=== PATIENT | male | born 2000 ===

== ENCOUNTER 2019-11-27 22:21 | Emergency (ER) | payer OTHER, SELFPAY ==
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
[2019-11-27 22:25] VITALS: BP 118/64; PULSE 80; RESP 19; TEMP 36.7; O2SAT 98; BMI 25.0
--- NOTE | 2019-11-27 22:33 | PC.NURSE ---
patient placed in rigid c-collar upon arrival
[2019-11-27 22:54] VITALS: BP 136/68; PULSE 62; RESP 17; O2SAT 99
[2019-11-27 23:08] VITALS: BP 137/75; PULSE 82; RESP 16; O2SAT 99
== END 2019-11-27 23:09 | disposition home or self-care (01) ==
LOC: ER 11-28 07:06
PROVIDERS: Emergency Provider Emergency Medicine
DX: S13.4XXA Sprain of ligaments of cervical spine, initial encounter (principal); S09.90XA Unspecified injury of head, initial encounter; V80.52XA Occupant of animal-drawn vehicle injured in collision with other specified motor vehicle, initial encounter
CPT/HCPCS: 12345; 70450; 71045; 72125; 72128; 99281; 99283

== ENCOUNTER 2020-11-23 14:40 | Inpatient (IN) | payer SELFPAY ==
[2020-11-23] VITALS (20 sets, daily range): BP systolic 86–118; BP diastolic 34–61; PULSE 86–140; RESP 15–36; TEMP 39.1–41.1; O2SAT 93–98; BMI 25.8
--- NOTE | 2020-11-23 15:05 | XRR_ITS ---
PROCEDURE INFORMATION: Exam: XR Chest Exam date and time: 11/23/2020 3:05 PM Age: 20 years old Clinical indication: Fever; Patient HX: He complains of headache, denies neck pain and stiffness, denies chest pain and shortness of breath. He admits abdominal cramping, nausea, vomiting. ; Additional info: Reduced breath sounds. Fever 105 TECHNIQUE: Imaging protocol: XR of the chest. Views: 1 view. COMPARISON: CR XR chest 1V portable [id number] 11/27/2019 10:40 PM FINDINGS: Lungs: Low lung volumes. Mild diffusely increased interstitial markings, particularly in the left infrahilar region. No focal consolidation. Pleural spaces: Unremarkable. No pleural effusion. No pneumothorax. Heart/Mediastinum: Cardiac silhouette upper normal factors. Bones/joints: Unremarkable. XR/XR chest 1V portable [id number] IMPRESSION: Mild diffusely increased interstitial markings which may be exaggerated by low lung volumes. This appears most pronounced in the left infrahilar region and acute infectious/inflammatory airways process is not excluded. No focal consolidation.
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
--- NOTE | 2020-11-23 15:09 | ECG_ITS ---
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 Measurements Intervals [place] Rate: 114 P: 57 OK: 171 QRS: 15 QRSD: 111 T: 60 QT: 322 QTc: 445 Interpretive Statements SINUS TACHYCARDIA INCOMPLETE RIGHT BUNDLE BRANCH BLOCK [90+ ms QRS DURATION, TERMINAL R IN V1/V2, 40+ ms S IN I/aVL/V4/V5/V6] NONSPECIFIC T-WAVE ABNORMALITY ABNORMAL RHYTHM ECG No previous ECG available for comparison Electronically Signed On 11-23-2020 21:32:29 CDT by Zafar Enrique M.D. [id number]
--- NOTE | 2020-11-23 15:29 | W.ED.FEVER ---
HPI - Fever General: Chief Complaint: Fever Stated Complaint: h/a high temp and aches Time Seen by Provider: 11/23/20 15:05 History of Present Illness: HPI Narrative: The patient is a 20-year-old [place] male who comes to the ER complaining of not feeling well for the past week. Presents to ER with temperature 106. He says he is taken no medications today but yesterday he took ibuprofen and aspirin. He complains of headache, denies neck pain and stiffness, denies chest pain and shortness of breath. He admits abdominal cramping, nausea, vomiting. He says he is pulled a few ticks off in the past few weeks as well. Discussed Covid with him in depth and need for testing and he adamantly refuses nasal swab. Discussed he could get sick and from this and he understands and accepts the consequences. MD elicited complaint: fever Relieving factors: nothing Associated symptoms: Reports abdominal pain, chills, headache(s), myalgias, nausea and vomiting; Deny flank pain, chest pain, confusion, cough, extremity pain, nasal congestion, short of breath, stiffness or sore throat Treatments prior to arrival fever: ibuprofen (yesterday) and aspirin (yesterday) Review of Systems General: Reports: 10 or more systems reviewed and unremarkable except in HPI and below Const: Reports: fever(s), chills and fatigue Eyes: Denies: change in vision, blurry vision or eye redness ENMT: Denies: nasal congestion Card: Denies: chest pain Resp: Denies: dyspnea, productive cough or non-productive cough GI: Reports: abdominal pain, nausea and vomiting : Denies: flank pain, urinary frequency or urinary urgency Musc: Denies: neck pain, back pain, extremity pain, joint pain, joint redness, limited range of motion or muscle weakness Skin/Breast: Denies: rash, pruritus, erythema, skin pain or skin tenderness Neuro: Reports: headache(s); Denies: confusion Psych: Denies: anxiety or depression Endo: Denies: polyuria All/Imm: Denies: urticaria, throat swelling or tongue swelling Physical Exam Narrative: EXAM NARRATIVE: febrile 106. warm to touch. Const: COMMON NORMALS: average body habitus, patient oriented x3 and alert GENERAL APPEARANCE: cooperative, well kempt, well developed, anxious and ill appearing ORIENTATION/CONSCIOUSNESS: Yes awake, Yes oriented to person, Yes oriented to place and Yes oriented to time HENMT: COMMON NORMALS: normocephalic, external ears normal and Normal external nose present HEAD & SCALP: normal to inspection and normocephalic NOSE: Normal external nose present EXTERNAL EAR: Yes external ears normal MOUTH: Normal oral and palatal mucosa present THROAT: posterior oropharynx normal Eye: COMMON NORMALS: Equal, round and reactive pupils present and EOMs intact bilaterally GENERAL EYE: appearance normal, both eyes and all related structures PUPIL: Yes Equal, round and reactive pupils present Neck/C-Spine: COMMON NORMALS: full ROM, no lymphadenopathy, no meningeal signs and no JVD GENERAL: Yes normal visual inspection OTHER: no neck pain or stiffness. Lymph: LYMPHATIC: no lymphadenopathy noted Chest: COMMONS NORMALS: normal inspection of the chest and normal palpation of entire chest wall Resp: COMMON NORMALS: normal respiratory effort, No retractions, No use of accessory muscles, clear to auscultation bilaterally and percussion normal EFFORT & INSPECTION: Yes able to speak in complete sentences AUSCULTATION: clear to auscultation bilaterally PERCUSSION: percussion normal Cardio: COMMON NORMALS: no JVD, regular rhythm, S1 normal heart sound present, S2 normal heart sound present and Peripheral pulses 2+ throughout RATE: tachycardic RHYTHM: regular rhythm HEART SOUNDS: S1 normal heart sound present and S2 normal heart sound present PERIPHERAL PULSES: Peripheral pulses 2+ throughout GI: COMMON NORMALS: Normal to inspection, nondistended, normoactive bowel sounds present, Soft to palpation, non-tender and no masses INSPECTION: Yes normal to inspection PALPATION: Yes Soft to palpation : COMMON NORMALS: Yes no CVA tenderness BLADDER/KIDNEY EXAM: Yes no CVA tenderness Back/Pelvis: COMMON NORMALS: no CVA tenderness, thoracic and lumbar spine normal to inspection, no thoracic nor lumbar tenderness and thoraco-lumbar ROM normal Extremity: COMMON NORMALS: normal to inspection, full ROM, capillary refill normal, no joint enlargement and no pedal edema GENERAL: Yes normal exam except as noted Neuro: COMMON NORMALS: patient oriented x3, CN's II-XII intact bilaterally, moves all extremities, no focal motor deficits, no sensory deficits noted and gait normal SENSORIUM/ORIENTATION: Yes alert, Yes oriented to person, Yes oriented to place and Yes oriented to time MENINGEAL SIGNS: Yes no meningeal signs Psych: COMMON NORMALS: mental status grossly normal, Normal thought process present, cooperative, normal affect and speech normal APPEARANCE: Yes well kempt ATTITUDE: Yes calm SPEECH: Yes normal speech THOUGHT PROCESS: Normal thought process present Skin: COMMON NORMALS: no rashes or lesions noted GENERAL SKIN EXAM: no rashes or lesions noted Course Vital Signs: Vital signs: Vital Signs Temperature 102.3 F H 11/23/20 17:20 Pulse Rate 97 11/23/20 19:39 Respiratory Rate 20 H 11/23/20 19:39 Blood Pressure 109/57 11/23/20 19:39 Pulse Oximetry 98 11/23/20 19:39 MDM - Fever MDM Narrative: Medical decision making narrative: The patient is a 20-year-old male [facility] unvaccinated gentleman who comes to the ER critically ill. Initially with heart rate sinus tach 140s and fever 106 degrees. He also complains of headache, weakness, belly pain, nausea and has been bitten by few ticks in the past few weeks. He has been feeling unwell for a week at home. He was started with sepsis protocol 2 L normal saline, vancomycin, Zosyn. Labs came back significantly abnormal as well white count 3.2 platelets 36, sodium 127, potassium 3, procalcitonin 9.6. He was initially refusing Covid swabs and after several different attempts he accepted and the swab came back negative. [facility] test is shut down for the holiday weekend. Influenza and strep also negative. As he was slightly better hydrated his fever did reduce with Tylenol however his blood pressure began to drop precipitously with mean arterial pressure in the 50s. He was again hydrated and started on Levophed drip which improved his blood pressure significantly. Discussed with Dr. Avendano who accepts to ICU. Patient has stabilized and we are weaning the norepinephrine drip as he tolerates. Lab Data: Labs: Lab Results 11/23/20 11/23/20 11/23/20 Range/Units 15:20 15:20 15:20 WBC Cancelled Corrected WBC Cancelled RBC Cancelled Hgb Cancelled Hct Cancelled MCV Cancelled MCH Cancelled MCHC Cancelled RDW Cancelled Plt Count Cancelled MPV Cancelled Gran % Cancelled Neut % (Auto) Cancelled Lymph % (Auto) Cancelled [place] % (Auto) Cancelled Eos % (Auto) Cancelled Baso % (Auto) Cancelled Neut # (Auto) Cancelled Lymph # (Auto) Cancelled [place] # (Auto) Cancelled Eos # (Auto) Cancelled Baso # (Auto) Cancelled Absolute Gran (aut o) Cancelled Nucleated RBC % (a uto) Cancelled Nucleated RBCs # Cancelled Sodium 123 L (136-145) mmol/L Potassium 3.0 L (3.5-5.1) mmol/L Chloride 92 L (98-107) mmol/L Carbon Dioxide 22 (22-29) mmol/L Anion Gap 12.0 (5-19) BUN 19 (6-20) mg/dL Creatinine 1.3 H (0.7-1.2) mg/dL GFR Calculation 69.7 L (90-130) mL/min Glucose 130 H (65-115) mg/dL Calculated Osmolal ity 260 L (285-295) mOsm/k g Lactic Acid 1.8 (0.5-2.2) mmol/L Calcium 7.7 L (8.5-10.5) mg/dL Total Bilirubin 1.1 (0.15-1.2) mg/dL AST 150 H (0-40) U/L ALT 115 H (0-41) U/L Alkaline Phosphata se 62 (40-130) IU/L Total Protein 5.6 L (6.6-8.7) g/dL Albumin 3.2 L (3.5-5.2) g/dL Globulin 2.4 (1.3-4.6) g/dL Lipase (13-60) U/L Procalcitonin 9.65 H (0-0.5) ng/mL Influenza Type A A g (Negative) Influenza Type B A g (Negative) SARS-CoV-2 Ag (Rap id) (Negative) Group A Strep Rapi d (Negative) 11/23/20 11/23/20 11/23/20 Range/Units 15:20 16:18 16:53 WBC 3.4 L Corrected WBC RBC 3.36 L Hgb 10.1 L Hct 27.9 L MCV 83.0 MCH 30.1 MCHC 36.2 H RDW 11.6 L Plt Count 38 L MPV 13.3 H Gran % Neut % (Auto) 62.1 Lymph % (Auto) 30.0 [place] % (Auto) 6.7 Eos % (Auto) 0.0 Baso % (Auto) 0.3 Neut # (Auto) 2.13 Lymph # (Auto) 1.0 [place] # (Auto) 0.2 Eos # (Auto) 0.0 Baso # (Auto) 0.0 Absolute Gran (aut o) Nucleated RBC % (a uto) 0 Nucleated RBCs # 0.0 Sodium (136-145) mmol/L Potassium (3.5-5.1) mmol/L Chloride (98-107) mmol/L Carbon Dioxide (22-29) mmol/L Anion Gap (5-19) BUN (6-20) mg/dL Creatinine (0.7-1.2) mg/dL GFR Calculation (90-130) mL/min Glucose (65-115) mg/dL Calculated Osmolal ity (285-295) mOsm/k g Lactic Acid (0.5-2.2) mmol/L Calcium (8.5-10.5) mg/dL Total Bilirubin (0.15-1.2) mg/dL AST (0-40) U/L ALT (0-41) U/L Alkaline Phosphata se (40-130) IU/L Total Protein (6.6-8.7) g/dL Albumin (3.5-5.2) g/dL Globulin (1.3-4.6) g/dL Lipase 25 (13-60) U/L Procalcitonin (0-0.5) ng/mL Influenza Type A A g (Negative) Influenza Type B A g (Negative) SARS-CoV-2 Ag (Rap id) Negative (Negative) Group A Strep Rapi d (Negative) 11/23/20 11/23/20 11/23/20 Range/Units 16:53 16:53 16:55 WBC 3.2 L Corrected WBC RBC 2.93 L Hgb 9.1 L Hct 24.7 L MCV 84.3 MCH 31.1 MCHC 36.8 H RDW 11.7 L Plt Count 36 L MPV 13.2 H Gran % Neut % (Auto) 65.9 Lymph % (Auto) 26.6 [place] % (Auto) 6.3 Eos % (Auto) 0.0 Baso % (Auto) 0.3 Neut # (Auto) 2.08 Lymph # (Auto) 0.8 [place] # (Auto) 0.2 Eos # (Auto) 0.0 Baso # (Auto) 0.0 Absolute Gran (aut o) Nucleated RBC % (a uto) 0 Nucleated RBCs # 0.0 Sodium (136-145) mmol/L Potassium (3.5-5.1) mmol/L Chloride (98-107) mmol/L Carbon Dioxide (22-29) mmol/L Anion Gap (5-19) BUN (6-20) mg/dL Creatinine (0.7-1.2) mg/dL GFR Calculation (90-130) mL/min Glucose (65-115) mg/dL Calculated Osmolal ity (285-295) mOsm/k g Lactic Acid (0.5-2.2) mmol/L Calcium (8.5-10.5) mg/dL Total Bilirubin (0.15-1.2) mg/dL AST (0-40) U/L ALT (0-41) U/L Alkaline Phosphata se (40-130) IU/L Total Protein (6.6-8.7) g/dL Albumin (3.5-5.2) g/dL Globulin (1.3-4.6) g/dL Lipase (13-60) U/L Procalcitonin (0-0.5) ng/mL Influenza Type A A g Negative (Negative) Influenza Type B A g Negative (Negative) SARS-CoV-2 Ag (Rap id) (Negative) Group A Strep Rapi d Negative (Negative) 11/23/20 Range/Units 16:55 WBC Corrected WBC RBC Hgb Hct MCV MCH MCHC RDW Plt Count MPV Gran % Neut % (Auto) Lymph % (Auto) [place] % (Auto) Eos % (Auto) Baso % (Auto) Neut # (Auto) Lymph # (Auto) [place] # (Auto) Eos # (Auto) Baso # (Auto) Absolute Gran (aut o) Nucleated RBC % (a uto) Nucleated RBCs # Sodium 129 L (136-145) mmol/L Potassium 2.6 L* (3.5-5.1) mmol/L Chloride 103 (98-107) mmol/L Carbon Dioxide 18 L (22-29) mmol/L Anion Gap 10.6 (5-19) BUN 16 (6-20) mg/dL Creatinine 1.1 (0.7-1.2) mg/dL GFR Calculation 84.5 L (90-130) mL/min Glucose 99 (65-115) mg/dL Calculated Osmolal ity 269 L (285-295) mOsm/k g Lactic Acid (0.5-2.2) mmol/L Calcium 5.6 L* D (8.5-10.5) mg/dL Total Bilirubin 0.8 (0.15-1.2) mg/dL AST 111 H (0-40) U/L ALT 81 H (0-41) U/L Alkaline Phosphata se 42 (40-130) IU/L Total Protein 3.8 L D (6.6-8.7) g/dL Albumin 2.3 L (3.5-5.2) g/dL Globulin 1.5 (1.3-4.6) g/dL Lipase (13-60) U/L Procalcitonin (0-0.5) ng/mL Influenza Type A A g (Negative) Influenza Type B A g (Negative) SARS-CoV-2 Ag (Rap id) (Negative) Group A Strep Rapi d (Negative) Discharge Plan Discharge Patient Disposition: Admitted As Inpatient Admit Provider: Sri Avendano Clinical Impression: Septic shock, Pancytopenia, Transaminitis, Hypokalemia, Hyponatremia Condition: Stable Coding Level of Care Code ED Moss Picker for Chg Fwd Exam Comprehensive
[2020-11-23] MEDS: ketorolac 30 mg/mL INJ 15 MG IVP (15:33)
[2020-11-23] MEDS: sodium chloride 0.9% 1,000 ML 999 ML IV (15:33)
[2020-11-23] MEDS: acetaminophen 325 mg Tablet 1000 MG PO (15:35)
[2020-11-23] MEDS: piperacillin-tazobactam 3.375 GM in sodium chloride 0.9% (plus) 50 ML IV (15:35)
[2020-11-23 15:50] LABS: Alanine Aminotransferase 115 U/L (0-41); Albumin Level 3.2 g/dL (3.5-5.2); Alkaline Phosphatase 62 IU/L (40-130); Aspartate Amino Transferase 150 U/L (0-40); Blood Urea Nitrogen 19 mg/dL (6-20); Calcium 7.7 mg/dL (8.5-10.5); Carbon Dioxide 22 mmol/L (22-29); Chloride 92 mmol/L (98-107); Globulin 2.4 g/dL (1.3-4.6); Glomerular Filtration Rate 69.7 mL/min (90-130); Glucose 130 mg/dL (65-115); Osmolality Calculated 260 mOsm/kg (285-295); Sodium 123 mmol/L (136-145); Total Bilirubin 1.1 mg/dL (0.15-1.2); Total Protein 5.6 g/dL (6.6-8.7)
[2020-11-23 15:52] LABS: Lactic Sepsis W/Reflex 1.8 mmol/L (0.5-2.2)
[2020-11-23 15:54] LABS: Procalcitonin 9.65 ng/mL (0-0.5)
[2020-11-23 16:01] LABS: Lipase 25 U/L (13-60)
[2020-11-23] MEDS: ondansetron 2 mg/ML SDV 2 mL 4 MG IVP (16:19)
[2020-11-23] MEDS: vancomycin 1,000 MG in sodium chloride 0.9% 250 ML 250 MG IV (16:20)
[2020-11-23 16:21] LABS: Basophils % 0.3 %; Hematocrit 27.9 % (42.0-52.0); Hemoglobin 10.1 g/dL (11.7-16.6); Mean Corpuscular HGB Conc 36.2 g/dL (30.0-36.0); Mean Corpuscular Hemoglobin 30.1 pg (28.0-34.0); Mean Platelet Volume 13.3 fL (7.4-10.4); Monocytes # 0.2 10^3/uL (0.2-0.9); Monocytes % 6.7 %; Neutrophils # 2.13 10^3/uL (1.8-7.7); Neutrophils % 62.1 %; Nucleated Red Blood Cells % 0 %; Platelet Count 38 10^3/cmm (130-400); Red Blood Count 3.36 10^6/uL (4.1-5.3); Red Cell Distribution Width 11.6 % (12.1-15.1); White Blood Count 3.4 10^3/uL (4.0-10.0)
[2020-11-23 16:22] LABS: Slide Review Slide Review Perform
[2020-11-23] MEDS: sodium chloride 0.9% 1,000 ML 200 ML IV (16:25)
[2020-11-23] MEDS: sodium chloride 0.9% 1,000 ML 1000 ML IV (16:26)
--- NOTE | 2020-11-23 16:32 | CTR_ITS ---
PROCEDURE INFORMATION: Exam: CT Chest Without Contrast; Diagnostic Exam date and time: 11/23/2020 4:32 PM Age: 20 years old Clinical indication: Fever and nausea and vomiting and other: Abd cramps; Shortness of breath; Patient HX: Abd cramps, SOB, fever, n/v; Additional info: Belly cramps, respiratory symptoms. Fever 106 TECHNIQUE: Imaging protocol: Diagnostic computed tomography of the chest without contrast. Radiation optimization: All CT scans at this facility use at least one of these dose optimization techniques: automated exposure control; mA and/or kV adjustment per patient size (includes targeted exams where dose is matched to clinical indication); or iterative reconstruction. COMPARISON: CR XR chest 1V portable [id number] 11/23/2020 3:30 PM RADIATION DOSE METRICS: Total DLP (mGy-cm): 2146.1 FINDINGS: Lungs: There is no consolidation. There is ill definition of pulmonary interstitial markings due to respiratory motion artifact. There is a 6 mm noncalcified right upper lobe pulmonary nodule visible on axial series 4, image 23. Pleural spaces: There is no pleural effusion or pneumothorax. Heart: The heart is unremarkable. There is no pericardial effusion. Mediastinal space: There are calcified lymph nodes in the mediastinum bilaterally. Aorta: The aorta is unremarkable. There is no aneurysm. Lymph nodes: There is no mediastinal or hilar lymphadenopathy. Bones/joints: Bones are unremarkable. Soft tissues: The extrathoracic soft tissues are unremarkable. IMPRESSION: 1. No acute findings. 2. 6 mm right upper lobe pulmonary nodule.If the patient does not have known cancer, follow up should be based on clinical information because of the low risk of cancer in this age group. (Reference: Ozzy) REFERENCES: Ozzy Angel, et al. Guidelines for Management of Incidental Pulmonary Nodules Detected on CT Images: From the Fleischner Society 2017. Radiology. 2017;284(1):228-243. PROCEDURE INFORMATION: Exam: CT Abdomen And Pelvis Without Contrast Exam date and time: 11/23/2020 4:32 PM Age: 20 years old Clinical indication: Fever and nausea and vomiting and other: Abd cramps; Shortness of breath; Patient HX: Abd cramps, SOB, fever, n/v; Additional info: Belly cramps, respiratory symptoms. Fever 106 TECHNIQUE: Imaging protocol: Computed tomography of the abdomen and pelvis without contrast. Radiation optimization: All CT scans at this facility use at least one of these dose optimization techniques: automated exposure control; mA and/or kV adjustment per patient size (includes targeted exams where dose is matched to clinical indication); or iterative reconstruction. COMPARISON: CR XR chest 1V portable [id number] 11/23/2020 3:30 PM RADIATION DOSE METRICS: Total DLP (mGy-cm): 2146.1 FINDINGS: Liver: The liver is normal. Gallbladder and bile ducts: The gallbladder is normal. There is no biliary dilation. Pancreas: The pancreas is unremarkable. Spleen: The spleen is moderately enlarged. Adrenal glands: The adrenal glands are unremarkable. Kidneys and ureters: There is mild bilateral hydronephrosis and mild proximal to mid ureteral dilation bilaterally. The distal ureters are nondilated. There are no renal or ureteral stones. The renal parenchyma is normal bilaterally. Stomach and bowel: The stomach is decompressed, preventing meaningful evaluation of wall thickness. The small bowel is nondilated. The colon is unremarkable. Appendix: The appendix is not visible. Intraperitoneal space: There is no free air or significant intraperitoneal free fluid. Vasculature: The aorta is unremarkable. There is no aneurysm. Lymph nodes: There is no lymphadenopathy in the retroperitoneum, mesentery, pelvis or inguinal regions. Urinary bladder: The urinary bladder is distended and thin walled. Reproductive: The prostate and seminal vesicles are unremarkable. Bones/joints: There is a region of bone sclerosis without periosteal reaction, erosion or bone expansion located at the superior margin of the right acetabulum. The lesion has a nonaggressive appearance. Soft tissues: The abdominal wall is intact. CT/CT chest abd pel wo con IMPRESSION: 1. Moderate splenic enlargement. 2. Mild bilateral hydronephrosis and proximal hydroureter without apparent cause for obstruction and no stones. Findings may be related to bladder distention. 3. Nonaggressive sclerotic bone lesion in the right superior acetabulum. This is likely benign. If the patient has a history of malignancy or pain at the site, consider follow-up bone scan. Radiation Dose CTDIVOL = (mGy): DLP = 2146.1~2146.1 (mGy-cm)
[2020-11-23 17:03] LABS: Basophils % 0.3 %; Hematocrit 24.7 % (42.0-52.0); Hemoglobin 9.1 g/dL (11.7-16.6); Lymphocytes # 0.8 10^3/uL (0.8-4.8); Lymphocytes % 26.6 %; Mean Corpuscular HGB Conc 36.8 g/dL (30.0-36.0); Mean Corpuscular Hemoglobin 31.1 pg (28.0-34.0); Mean Corpuscular Volume 84.3 fL (80-94); Mean Platelet Volume 13.2 fL (7.4-10.4); Monocytes # 0.2 10^3/uL (0.2-0.9); Monocytes % 6.3 %; Neutrophils # 2.08 10^3/uL (1.8-7.7); Neutrophils % 65.9 %; Nucleated Red Blood Cells % 0 %; Platelet Count 36 10^3/cmm (130-400); Red Blood Count 2.93 10^6/uL (4.1-5.3); Red Cell Distribution Width 11.7 % (12.1-15.1); White Blood Count 3.2 10^3/uL (4.0-10.0)
[2020-11-23 17:09] LABS: Rapid Strep A Test Negative (Negative)
[2020-11-23 17:21] LABS: Influenza A by IFA Negative (Negative); Influenza B by IFA Negative (Negative)
[2020-11-23 17:23] LABS: Alanine Aminotransferase 81 U/L (0-41); Albumin Level 2.3 g/dL (3.5-5.2); Alkaline Phosphatase 42 IU/L (40-130); Aspartate Amino Transferase 111 U/L (0-40); Blood Urea Nitrogen 16 mg/dL (6-20); Carbon Dioxide 18 mmol/L (22-29); Chloride 103 mmol/L (98-107); Creatinine Clr Calc Pharmacy 108.0081; Globulin 1.5 g/dL (1.3-4.6); Glomerular Filtration Rate 84.5 mL/min (90-130); Glucose 99 mg/dL (65-115); Osmolality Calculated 269 mOsm/kg (285-295); Sodium 129 mmol/L (136-145); Total Bilirubin 0.8 mg/dL (0.15-1.2); Total Protein 3.8 g/dL (6.6-8.7)
[2020-11-23 17:30] LABS: Anion Gap 10.6 (5-19); Potassium 2.6 mmol/L (3.5-5.1)
[2020-11-23 17:31] LABS: Calcium 5.6 mg/dL (8.5-10.5)
[2020-11-23 17:43] LABS: SARS Covid-2 Antigen Negative (Negative)
--- NOTE | 2020-11-23 18:54 | P.HP_ITS ---
Providers/Chief Complaint Admitting Physician: Sri Avendano MD Chief Complaint: h/a high temp and aches History of Present Illness Solo Galeana is a 20 year old male with no significant known past medical history who presented to the the ER his temperature was first noted to be 106 Fahrenheit. After being given Tylenol this is down to 1 or 2.3 Fahrenheit. Patient was also noted to be tachycardic upon admission with heart rate 140. Patient reports he has had fever for about 1 week now, along with that he states he has abdominal discomfort in the lower abdomen, few episodes of nausea and vomiting, diarrhea which started today. He is unable to tell me how many stools he had today. Any chest pain cough dyspnea or palpitations. There are no known sick contacts. He also complains of a headache, conjunctival injection is not ed. He is alert awake and oriented, does have some pain in the neck on movement. A lumbar puncture cannot be safely attempted at this time as platelet count is 36. Denies any sore throat. Denies any rashes. 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 Has not noticed any tick bites recently however this is certainly a possibility. Has pet cats and dogs at home, no animal bites recently. 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 Drinks unpasteurized milk. Consumes raw eggs. no raw meat. Labs notable for pancytopenia, deranged LFTs, CT CAP without gross sources of infection Review of Systems General: Reports: 10 or more systems reviewed and unremarkable except in HPI and below Const: Reports: fever(s), chills and body aches Eyes: Denies: change in vision, blurry vision or photophobia ENMT: Denies: throat pain, enlarged tonsils, odynophagia or nasal congestion Card: Denies: chest pain, palpitations, irregular heart rhythm, edema, swelling of feet/ankles, lightheadedness, pre-syncope, dyspnea on exertion or orthopnea Resp: Denies: dyspnea, productive cough, non-productive cough, wheezing, stridor, pain on inspiration, change in phlegm color, hemoptysis or chest congestion GI: Reports: abdominal pain, nausea, vomiting and diarrhea; Denies: hematemesis, coffee ground emesis, dysphagia, heartburn, constipation, GI cramping, change in stool character, hematochezia or melena : Denies: flank pain, dysuria, urinary frequency, urinary urgency, urinary hesitancy or hematuria Musc: Denies: neck pain, back pain, extremity pain, joint swelling, joint warmth or deformity Neuro: Reports: headache(s); Denies: numbness in extremities, weakness in extremities, sensory changes, difficulty walking, frequent falls, dizziness, vertigo, behavioral changes, Slurred speech present or seizure-like activity Psych: Denies: anxiety, depression, suicidal ideation or homicidal ideation Endo: Denies: polyuria, polydipsia, tired all the time, cold intolerance or hot flashes Mikael/Lymph: Denies: easy bruising or easy bleeding Medications/Allergies Home Medications Medication Instructions Recorded Confirmed Last Taken Type No Known Home Medications 11/23/20 11/23/20 Unknown History Allergies Allergy/AdvReac Type Severity Reaction Status Date / Time No Known Allergies Allergy Verified 11/23/20 15:09 Vitals/I&O/Wt Last Vital Signs Temp 102.3 F H 11/23/20 17:20 Pulse 94 11/23/20 17:45 Resp 22 H 11/23/20 17:45 BP 115/55 11/23/20 17:45 Pulse Ox 96 11/23/20 17:45 11/23/20 11/23/20 11/23/20 06:59 14:59 22:59 Intake Total 1050 / 1050 Balance 1050 / 1050 Weight last 48 hrs Weight 77.111 kg Physical Exam Narrative: EXAM NARRATIVE: General: No acute distress, AO x3 HEENT: PERRLA, pupils bilaterally equal and reactive, pallors not present, conj unctival effusion + Chest: Normal vesicular breath sounds, no added sounds, equal good air entry bi laterally CVS: S1-S2 regular, no murmurs, no tachycardia, no gallops, no rubs Abdomen: Soft, nontender, no organomegaly, bowel sounds present Neuro: No focal deficits, no facial deformity, AO x3, power 5/5 in all limbs Extremities: faint maculopapular rash with some petechiae around B/L ankles Data : 11/23/20 16:55 11/23/20 16:55 Micro: Microbiology 11/23/20 15:26 Blood Culture - Preliminary Blood SPECIMEN COLLECTED 07/02/21 15:20 Blood Culture - Preliminary Blood SPECIMEN COLLECTED A&P Assessment and plan (1) Septic shock: Source under evaluation Check Covid PCR, influenza Ag, blood cx, UA cannot obtain LP though meningitis on differential as plt count at [address] CAP without gross source identifiable, note made of mild hydronephrois likely 2/2 distended bladder, no obstruction identified [facility] monoscreen, leptospira ag, enteric PCR panel, bacterial Ag panel start ceftriaxone 2g iv q12h, vancomycin, doxycycline 100mg q12h start levophed, titrate to keep MAP>65 Sepsis bolus given in ER, continue IVF NS @ 125c/hr blood cx taken priro to abx initiation Status: Acute (2) Pancytopenia: may be related to sepsis Status: Acute (3) Transaminitis: likely Status: Acute (4) Hypokalemia: replete iv recheck CMP at 9pm Status: Acute (5) Hyponatremia: Status: Acute Attestations Medical Necessity Statement*: >2midnight will be needed for evaluation and m anagement of septic shock Critical Care Time: The high probability of a clinically significant, sudden or life threatening deterioration of the patient's [] system(s) required my full and direct attention, intervention and personal management. The critical care time is as shown. This time is in addition to time spent performing any reported procedures but includes the following: [x] Data and vital sign review and interpretation [x] Patient assessment, examination and intervention [x] Documentation [x] Medication orders and management Critical Care Time (min): 60 Coding Level of Care Code Acute Biological Scientist for [facility] Diagnoses Septic shock A41.9; R65.21 Pancytopenia D61.818 Transaminitis R74.01 Hypokalemia E87.6 Hyponatremia E87.1
[2020-11-23 20:06] LABS: Alanine Aminotransferase 92 U/L (0-41); Albumin Level 2.8 g/dL (3.5-5.2); Alkaline Phosphatase 49 IU/L (40-130); Aspartate Amino Transferase 139 U/L (0-40); Blood Urea Nitrogen 18 mg/dL (6-20); Calcium 6.4 mg/dL (8.5-10.5); Carbon Dioxide 21 mmol/L (22-29); Chloride 96 mmol/L (98-107); Globulin 1.8 g/dL (1.3-4.6); Glomerular Filtration Rate 76.4 mL/min (90-130); Glucose 106 mg/dL (65-115); Osmolality Calculated 266 mOsm/kg (285-295); Sodium 127 mmol/L (136-145); Total Bilirubin 1.1 mg/dL (0.15-1.2); Total Protein 4.6 g/dL (6.6-8.7)
[2020-11-23] MEDS: acetaminophen 500 mg Tablet 1000 MG PO (21:14)
[2020-11-23 21:42] LABS: Monoscreen Negative (Negative)
[2020-11-23 22:03] LABS: HIV 1 & 2 Antibody Non-Reactive (Non-Reactiv); HIV 1 & 2 Antigen Non-Reactive (Non-Reactiv)
[2020-11-23 22:09] LABS: Vitamin B12 541 pg/mL (232-1245)
[2020-11-23 22:17] LABS: INR 1.49 (0.8-1.2)
[2020-11-23 22:18] LABS: Partial Thromboplastin Time 61.7 SECONDS (23.9-36.7)
[2020-11-23] MEDS: sodium chlor 0.9% + KCl 20 mEq 20 MEQ/1,000 ML BAG 125 MEQ IV (22:20)
[2020-11-23] MEDS: lidocaine 1% 5 ML in potassium chloride premix 100 ML 25 ML IV (22:22)
[2020-11-23] MEDS: doxycycline 100 mg Tablet PO (22:25)
--- NOTE | 2020-11-23 22:25 | PC.NURSE ---
Admit Note Arrived to unit from ED at this time via gurney. Pt placed in droplet isolation pending PCR test. Arrived to unit alert and oriented. Pt placed on bedside desk monitor. Febrile on arrival, temp 103.3. Arrived on levophed infusing at 2mcg/min. Breathing even and non-labored on room air. Nurse at bedside, admission in progress.
--- NOTE | 2020-11-23 22:31 | PC.PHAR ---
Pharmacokinetic dosing service Date: 11/23/20 Time: 2231 Objective: Patient: Solo Galeana Floor: ICU-10 Age: 20 yo Serum creatinine: 1.2 mg/dL Height: 68.0 Inches Weight (kg): 79.968 Diagnosis: Relevant medical/social history: Cultures and sensitivities: Other labs: Assessment: IBW (kg): 68.40 Dosing wt(kg): 79.968 Estimated Creatinine clearance (ml/min): 94.2 CRCL method: Cockcroft and Gault using ibw(default). Drug selected: Vancomycin Loading dose (mg): 0 Vd (liters): 72.0 (factor used: 0.9 L/kg) Kendall (hr-1): 0.083 Half life (hrs): 8.35 Recommended dose: 1250 mg Interval: 12 hrs Infusion time (hrs): 1.5 Predicted peak (mcg/mL): 25.9 Predicted trough (mcg/mL): 10.83 Total body weight is being used for vancomycin dosing. Renal function is stable [ ] /unstable [ ] Recommendations: Give Vancomycin 1250 mg q 12 hrs with an expected Cpeak of 25.9 mcg/ml and an expected Ctrough of 10.83 mcg/ml Renal dosing of other antibiotics (review renal dosing of other medications and list guidelines here): Thank you for the consult, will continue to follow. Signature: Lynne Cuevas [facility]
[2020-11-23 22:34] LABS: D Dimer 9.22 ug/mIFEU (0-0.59)
[2020-11-23 22:37] LABS: Fibrinogen 142 mg/dL (174-498)
[2020-11-23 22:49] LABS: Add Urine Microscopic? YES; Bilirubin Urine Neg (Negative); Blood Urine 2+ (Negative); Glucose Urine UA Norm (Normal); Ketones Urine Negative (Negative); Leukocyte Esterase Urine Negative (Negative); Nitrate Urine Negative (Negative); Protein Urine Neg (Negative); Urine Appearance Clear (CLEAR); Urine Color Yellow (Yellow); Urobilinogen Urine Norm (Negative); pH Urine 5 (5-7)
[2020-11-23 22:50] LABS: RBC Urine 0-4 /hpf (0-2)
[2020-11-23 22:51] LABS: Add Urine Culture? Yes; Bacteria Urine 2+ /hpf; Squamous Epithelial Cell Urine 0-4 /hpf (0-5)
[2020-11-23] MEDS: cefTRIAXone 2,000 MG in sodium chloride 0.9% (plus) 50 ML 100 MG IV (23:01)
[2020-11-24] VITALS (47 sets, daily range): BP systolic 99–110; BP diastolic 44–70; PULSE 83–107; RESP 18–33; TEMP 37.1–39.7; O2SAT 88–99
[2020-11-24 01:36] LABS: Lactate Dehydrogenase 884 U/L (135-225)
[2020-11-24 01:49] LABS: Rapid Plasma Reagin Syphilis Nonreactive (Nonreactive)
[2020-11-24] MEDS: acetaminophen 325 mg Tablet 650 MG PO ×3 (02:33→19:28)
--- NOTE | 2020-11-24 02:41 | PC.NURSE ---
Fever/Chills Pt chilling, temp checked at this time 101.4 oral. Medicated with 650mg tylenol. Denies pain.
[2020-11-24 02:44] LABS: Hepatitis A Antibody IgM Non-Reactive (Nonreactive); Hepatitis B Core AB, Total Non-Reactive (Nonreactive); Hepatitis B Surface AB 3.5 (11.5-1000); Hepatitis B Surface Antigen Non-Reactive (Nonreactive); Hepatitis C Virus Antibody Non-Reactive (Nonreactive)
[2020-11-24] MEDS: vancomycin 1,250 MG/250 ML PIGGYBACK 250 MG IV ×2 (03:59→17:22)
[2020-11-24] MEDS: sodium chlor 0.9% + KCl 20 mEq 20 MEQ/1,000 ML BAG 125 MEQ IV ×3 (05:38→21:35)
[2020-11-24 07:46] LABS: Basophils % 0.3 %; Hematocrit 31.6 % (42.0-52.0); Hemoglobin 11.5 g/dL (11.7-16.6); Lymphocytes # 0.5 10^3/uL (0.8-4.8); Lymphocytes % 18.6 %; Mean Corpuscular HGB Conc 36.4 g/dL (30.0-36.0); Mean Corpuscular Hemoglobin 30.5 pg (28.0-34.0); Mean Corpuscular Volume 83.8 fL (80-94); Mean Platelet Volume 12.7 fL (7.4-10.4); Monocytes # 0.3 10^3/uL (0.2-0.9); Monocytes % 8.6 %; Neutrophils # 2.09 10^3/uL (1.8-7.7); Neutrophils % 71.8 %; Nucleated Red Blood Cells % 0 %; Platelet Count 39 10^3/cmm (130-400); Red Blood Count 3.77 10^6/uL (4.1-5.3); Red Cell Distribution Width 12.2 % (12.1-15.1); White Blood Count 2.9 10^3/uL (4.0-10.0)
[2020-11-24 07:53] LABS: LAB Peripheral Smear Sent for Review; Lactic Sepsis W/Reflex 1.8 mmol/L (0.5-2.2)
[2020-11-24 07:54] LABS: Alanine Aminotransferase 97 U/L (0-41); Albumin Level 2.7 g/dL (3.5-5.2); Alkaline Phosphatase 50 IU/L (40-130); Anion Gap 10.6 (5-19); Aspartate Amino Transferase 152 U/L (0-40); Blood Urea Nitrogen 13 mg/dL (6-20); Calcium 6.7 mg/dL (8.5-10.5); Carbon Dioxide 22 mmol/L (22-29); Chloride 105 mmol/L (98-107); Globulin 1.9 g/dL (1.3-4.6); Glomerular Filtration Rate 94.3 mL/min (90-130); Glucose 111 mg/dL (65-115); Osmolality Calculated 279 mOsm/kg (285-295); Potassium 3.6 mmol/L (3.5-5.1); Sodium 134 mmol/L (136-145); Total Bilirubin 0.7 mg/dL (0.15-1.2); Total Protein 4.6 g/dL (6.6-8.7)
[2020-11-24 07:58] LABS: Slide Review Slide Review Perform
[2020-11-24 08:47] LABS: Cortisol Random 13.28 ug/dL (2.47-19.5)
[2020-11-24] MEDS: pantoprazole DR 40 mg Tablet PO (08:50)
[2020-11-24] MEDS: doxycycline 100 mg Tablet PO ×2 (08:50→17:21)
[2020-11-24] MEDS: cefTRIAXone 2,000 MG in sodium chloride 0.9% (plus) 50 ML 100 MG IV ×2 (10:46→21:35)
--- NOTE | 2020-11-24 19:08 | P.PN_ITS ---
Subjective Subjective: Interval history: Fever curve improving today. Stable Levophed requirements at 4 mics. Overnight significant labs included positive DIC panel. Leukopenia and thrombocytopenia stable. Patient states he feels that he is improving. Less headache today. Medications: Reviewed: Yes Vitals/I&O/Wt Last Vital Signs Temp 98.9 F 11/24/20 18:00 Pulse 98 11/24/20 18:00 Resp 18 11/24/20 18:00 BP 100/55 11/24/20 18:00 Pulse Ox 96 11/24/20 18:00 11/24/20 11/24/20 11/24/20 06:59 14:59 22:59 Intake Total 1200.977 / 3367.238 1314.262 / 1314.262 450 / 1764.262 Output Total 3200 / 3200 800 / 800 2200 / 3000 Balance -1999.023 / 167.238 514.262 / 514.262 -1750 / -1235.738 Weight last 48 hrs Weight 82.055 kg Weight 79.968 kg Weight 77.111 kg Physical Exam Narrative: EXAM NARRATIVE: General: No acute distress, AO x3 HEENT: PERRLA, pupils bilaterally equal and reactive, pallors not present, conjunctival effusion + Chest: Normal vesicular breath sounds, no added sounds, equal good air entry bilaterally CVS: S1-S2 regular, no murmurs, no tachycardia, no gallops, no rubs Abdomen: Soft, nontender, no organomegaly, bowel sounds present Neuro: No focal deficits, no facial deformity, AO x3, power 5/5 in all limbs Extremities: faint maculopapular rash with some petechiae around B/L ankles Urinary Catheter Management^: Grijalva: Cath Placed During This Visit: yes Reason for Continuing Indwelling Catheter: Accurate Measurement of Urinary Output in Critically Ill Patients Urinary Catheter Date of Insertion: 11/23/20 Urinary Catheter Time of Insertion: 22:15 Data : 11/24/20 07:23 11/24/20 07:23 Micro: Microbiology 11/23/20 15:26 Blood Culture - Preliminary Blood NEGATIVE TO DATE 11/23/20 15:20 Blood Culture - Preliminary Blood NEGATIVE TO DATE 11/23/20 22:30 Chlamydia trachomatis (RAF) - Final Urine Random Neisseria gonorrhoeae (RAF) - Final 11/24/20 07:17 Blood Culture - Preliminary Blood SPECIMEN COLLECTED 11/24/20 07:23 Blood Culture - Preliminary Blood SPECIMEN COLLECTED 11/23/20 22:30 Bacterial Antigens - Final Urine,Voided 11/23/20 22:30 Legionella Urinary Antigen - Final Urine Catheterized A&P Assessment and plan (1) Septic shock: Source under evaluation Check Covid PCR influenza Ag negative, blood cx thus far without growth, UA with 2+ blood, negative leuk esterase, 2+ bacteria, urine culture pending cannot obtain LP though meningitis on differential as plt count at 32 check tick panel, pending CT CAP without gross source identifiable, note made of mild hydronephrois likely 2/2 distended bladder, no obstruction identified Negative monoscreen Pending leptospira ag, enteric PCR panel, bacterial Ag panel Continue ceftriaxone 2g iv q12h, vancomycin, doxycycline 100mg q12h Continue levophed, titrate to keep MAP>65 continue IVF NS @ 125c/hr Status: Acute (2) Pancytopenia: may be related to sepsis Status: Acute (3) Transaminitis: likely related to sepsis versus tick borne illness Status: Acute (4) Hypokalemia: replete iv Status: Acute (5) Hyponatremia: As a result of dehydration, improving Status: Acute (6) DIC (disseminated intravascular coagulation): As a result of severe sepsis treating the underlying cause as above. Status: Acute Attestations Medical Necessity Statement*: Septic shock, DIC currently on pressor support, needs ongoing IV antibiotics, close monitoring of clinical status Critical Care Time: The high probability of a clinically significant, sudden or life threatening deterioration of the patient's [] system(s) required my full and direct attention, intervention and personal management. The critical care time is as shown. 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
--- NOTE | 2020-11-24 21:11 | PC.NURSE ---
Decreased O2 saturations Pt maintaining O2 sat of 88-89% on room air. Lungs diminished throughout. RR WNL , respiration shallow. Encourage turn, cough, deep breath. Applied 2L NC at this time.
[2020-11-25] VITALS (21 sets, daily range): BP systolic 77–119; BP diastolic 45–75; PULSE 49–90; RESP 18–37; TEMP 36.9–38.9; O2SAT 92–99
[2020-11-25] MEDS: acetaminophen 325 mg Tablet 650 MG PO ×2 (01:26→19:32)
[2020-11-25 04:07] LABS: Vancomycin Trough 4.5 ug/mL (10-15)
[2020-11-25] MEDS: vancomycin 1,250 MG/250 ML PIGGYBACK 250 MG IV ×3 (04:14→19:32)
[2020-11-25] MEDS: sodium chlor 0.9% + KCl 20 mEq 20 MEQ/1,000 ML BAG 125 MEQ IV ×3 (06:58→22:58)
[2020-11-25] MEDS: pantoprazole DR 40 mg Tablet PO (08:59)
[2020-11-25] MEDS: doxycycline 100 mg Tablet PO ×2 (08:59→18:22)
[2020-11-25] MEDS: cefTRIAXone 2,000 MG in sodium chloride 0.9% (plus) 50 ML 100 MG IV ×2 (08:59→21:13)
--- NOTE | 2020-11-25 09:53 | USR_ITS ---
PROCEDURE INFORMATION: Exam: US Retroperitoneal Limited, Kidneys Exam date and time: 11/25/2020 9:53 AM Age: 20 years old Clinical indication: Condition or disease; Other: Follow up hydronephrosis TECHNIQUE: Imaging protocol: Real-time ultrasound of the retroperitoneum with image documentation. Examination was focused on the kidneys. COMPARISON: CT chest abd pel wo con 11/23/2020 5:36 PM FINDINGS: Right kidney: 12.2 cm in length. Trace perinephric fluid. No stones. No hydronephrosis. Left kidney: 12.2 cm in length. No stones. Extrarenal pelvis. No hydronephrosis. Pleural space: Left pleural effusion. Spleen: Normal spleen. US/US renal BI* [id number] IMPRESSION: 1. Trace right perinephric fluid. No hydronephrosis. 2. Left pleural effusion.
[2020-11-25 10:47] LABS: Basophils % 1.2 %; Hematocrit 33.4 % (42.0-52.0); Hemoglobin 11.6 g/dL (11.7-16.6); Lymphocytes # 1.3 10^3/uL (0.8-4.8); Lymphocytes % 40.4 %; Mean Corpuscular HGB Conc 34.7 g/dL (30.0-36.0); Mean Corpuscular Hemoglobin 30.6 pg (28.0-34.0); Mean Corpuscular Volume 88.1 fL (80-94); Mean Platelet Volume 12.7 fL (7.4-10.4); Monocytes # 0.2 10^3/uL (0.2-0.9); Monocytes % 6.6 %; Neutrophils # 1.69 10^3/uL (1.8-7.7); Neutrophils % 50.9 %; Nucleated Red Blood Cells % 0 %; Platelet Count 42 10^3/cmm (130-400); Red Blood Count 3.79 10^6/uL (4.1-5.3); Red Cell Distribution Width 12.7 % (12.1-15.1); White Blood Count 3.3 10^3/uL (4.0-10.0)
[2020-11-25 11:10] LABS: Alanine Aminotransferase 106 U/L (0-41); Albumin Level 2.5 g/dL (3.5-5.2); Alkaline Phosphatase 52 IU/L (40-130); Anion Gap 11.5 (5-19); Aspartate Amino Transferase 187 U/L (0-40); Blood Urea Nitrogen 9 mg/dL (6-20); Calcium 6.9 mg/dL (8.5-10.5); Carbon Dioxide 21 mmol/L (22-29); Chloride 107 mmol/L (98-107); Globulin 2.1 g/dL (1.3-4.6); Glomerular Filtration Rate 142.4 mL/min (90-130); Glucose 93 mg/dL (65-115); Osmolality Calculated 278 mOsm/kg (285-295); Potassium 4.5 mmol/L (3.5-5.1); Sodium 135 mmol/L (136-145); Total Bilirubin 0.8 mg/dL (0.15-1.2); Total Protein 4.6 g/dL (6.6-8.7)
[2020-11-25 11:11] LABS: Slide Review Slide Review Perform
--- NOTE | 2020-11-25 14:54 | PM.PN ---
Subjective Subjective: Interval history: Overnight T-max at 103 Fahrenheit. Hemodynamically remained stable. Has been off Levophed since yesterday afternoon. States he feels clinically better. Headache is persisting though it is better. Urine output almost at 5.6 L. Well-hydrated. Medications: Reviewed: Yes Vitals/I&O/Wt Last Vital Signs Temp 98.8 F 11/25/20 13:36 Pulse 78 11/25/20 14:38 Resp 18 11/25/20 14:38 BP 119/75 11/25/20 14:38 Pulse Ox 95 11/25/20 14:38 11/24/20 11/25/20 11/25/20 22:59 06:59 14:59 Intake Total 1654.167 / 3018.429 1310 / 4328.429 1660 / 1660 Output Total 3050 / 3850 2600 / 2600 Balance -1395.833 / -912.433 3619 / 478.429 -940 / -940 Weight last 48 hrs Weight 79.107 kg Weight 82.055 kg Weight 79.968 kg Weight 77.111 kg Physical Exam Narrative: EXAM NARRATIVE: General: No acute distress, AO x3 HEENT: PERRLA, pupils bilaterally equal and reactive, pallors not present, conjunctival effusion + Chest: Normal vesicular breath sounds, no added sounds, equal good air entry bilaterally CVS: S1-S2 regular, no murmurs, no tachycardia, no gallops, no rubs Abdomen: Soft, nontender, no organomegaly, bowel sounds present Neuro: No focal deficits, no facial deformity, AO x3, power 5/5 in all limbs Extremities: faint maculopapular rash with some petechiae around B/L ankles Urinary Catheter Management^: Grijalva: Cath Placed During This Visit: yes, but has since been removed by the nurse Reason for Continuing Indwelling Catheter: Decision to DC Catheter Urinary Catheter Date of Insertion: 11/23/20 Urinary Catheter Time of Insertion: 22:15 Date Urinary Catheter Removed: 11/25/20 Time Urinary Catheter Discontinued: 11:29 Data : 11/25/20 10:12 11/25/20 10:12 Micro: Microbiology 11/25/20 11:10 C.difficile Toxin B Gene (PCR) - Final Stool Routine Collection 11/23/20 16:53 Group A Streptococcus Rapid Screen - Preliminary Throat 11/23/20 22:30 Urine Culture - Preliminary Urine Catheterized 11/24/20 07:17 Blood Culture - Preliminary Blood NEGATIVE TO DATE 11/24/20 07:23 Blood Culture - Preliminary Blood NEGATIVE TO DATE 11/23/20 15:26 Blood Culture - Preliminary Blood NEGATIVE TO DATE 11/23/20 15:20 Blood Culture - Preliminary Blood NEGATIVE TO DATE 11/23/20 22:30 Chlamydia trachomatis (RAF) - Final Urine Random Neisseria gonorrhoeae (RAF) - Final A&P Assessment and plan (1) Septic shock: Improving today, titrated off pressors since 2 PM on 11/24/2020. Source is currently under evaluation Pending Covid PCR influenza Ag negative, blood cx thus far without growth, UA with 2+ blood, negative leuk esterase, 2+ bacteria, urine culture with no growth thus far cannot obtain LP though meningitis on differential as plt count at [address] CAP without gross source identifiable, note made of mild hydronephrois likely 2/2 distended bladder, no obstruction identified, since today with persisting fever will rescan with renal ultrasound to evaluate for any change in hydronephrosis Negative monoscreen Pending leptospira ag, enteric PCR panel, bacterial Ag panel , C. difficile PCR negative Continue ceftriaxone 2g iv q12h, vancomycin, doxycycline 100mg q12h continue IVF NS @ 100c/hr encourage p.o. intake No Lymphadenopathy on exam or CT, less concerning for lymphoma Normal differential on CBC makes hematological malignancy less likely, no blast forms noted HIV, hepatitis, STD screen negative Status: Acute (2) Pancytopenia: may be related to sepsis , hemolysis , DIC Status: Acute (3) Transaminitis: likely related to sepsis versus tick borne illness Liver normal on Status: Acute (4) Hypokalemia: now repleted Status: Acute (5) Hyponatremia: As a result of dehydration, improving Status: Acute (6) DIC (disseminated intravascular coagulation): As a result of severe sepsis, treating the underlying cause as above. 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
[2020-11-25 15:42] LABS: Quest SARS-CoV-2 RNA NOT DETECTED (NOT DETECTED)
--- NOTE | 2020-11-25 19:50 | PC.NURSE ---
Headache/Pain; Patient c/o persistent headache. Family at bedside, and expressed concerns in patient condition while asking questions about current plan of care. RN educated on care plan at this time, and reviewed labs with Patient, Father, and Mother. Answered all questions. Headache treated with PRN PO Tylenol.
--- NOTE | 2020-11-25 23:10 | ECG_ITS ---
[facility] Test Date: 2020-11-25 Pat Name: Solo Galeana Department: Room: ICU10 Gender: Male [place]: : 2000 Requested By: Caron Michaud Order Number: [id number] Reading MD: CARON HERNANDEZ Measurements Intervals [place] Rate: 74 P: 60 WI: 171 QRS: 59 QRSD: 102 T: 39 QT: 389 QTc: 434 Interpretive Statements SINUS RHYTHM MINIMAL VOLTAGE CRITERIA FOR LVH, CONSIDER NORMAL VARIANT [MEETS CRITERIA IN ONE OF: R(aVL), S(V1), R(V5), R(V5/V6)+S(V1)] WARNING: DATA QUALITY MAY AFFECT INTERPRETATION INTERPRETATION BASED ON A DEFAULT AGE OF 40 YEARS Compared to ECG 11/23/2020 15:53:45 Sinus tachycardia no longer present Incomplete right bundle-branch block no longer present T-wave abnormality no longer present Electronically Signed On 11-26-2020 18:53:14 CDT by CARON HERNANDEZ [id number]
--- NOTE | 2020-11-25 23:23 | PC.NURSE ---
Hypotension/Bradycardia; Patient experiencing episodes of sustained hypotension. Maps decreased into 50's. Levo gtt restarted per protocol. Patient also exhibiting signs of bradycardia with HR sustaining in the 40's. EKG completed. MD Jaswant notified and came to bedside. Verbal orders to start Dopamine if bradycardia persists, and to place pacer pads on patient. TSH labs to be collected with AM labs. Patient currently converted back into SR.
[2020-11-26] VITALS (36 sets, daily range): BP systolic 89–122; BP diastolic 48–79; PULSE 49–123; RESP 21–36; TEMP 36.9; O2SAT 92–99
[2020-11-26 03:33] LABS: Basophils # 0.1 10^3/uL (0.0-0.1); Basophils % 1.3 %; Eosinophils % 0.8 %; Hematocrit 35.6 % (42.0-52.0); Hemoglobin 12.3 g/dL (11.7-16.6); Lymphocytes # 1.9 10^3/uL (0.8-4.8); Lymphocytes % 49.5 %; Mean Corpuscular HGB Conc 34.6 g/dL (30.0-36.0); Mean Corpuscular Hemoglobin 30.1 pg (28.0-34.0); Mean Platelet Volume 13.3 fL (7.4-10.4); Monocytes # 0.3 10^3/uL (0.2-0.9); Monocytes % 7.2 %; Neutrophils # 1.53 10^3/uL (1.8-7.7); Neutrophils % 40.7 %; Nucleated Red Blood Cells % 0 %; Platelet Count 50 10^3/cmm (130-400); Red Blood Count 4.09 10^6/uL (4.1-5.3); Red Cell Distribution Width 12.4 % (12.1-15.1); White Blood Count 3.8 10^3/uL (4.0-10.0)
[2020-11-26 03:34] LABS: INR 1.29 (0.8-1.2)
[2020-11-26 03:35] LABS: Partial Thromboplastin Time 37.3 SECONDS (23.9-36.7)
[2020-11-26 03:45] LABS: D Dimer 4.48 ug/mIFEU (0-0.59)
[2020-11-26 03:53] LABS: Fibrinogen 141 mg/dL (174-498)
[2020-11-26 03:54] LABS: Alanine Aminotransferase 418 U/L (0-41); Albumin Level 2.8 g/dL (3.5-5.2); Alkaline Phosphatase 77 IU/L (40-130); Anion Gap 11.4 (5-19); Blood Urea Nitrogen 10 mg/dL (6-20); Calcium 7.3 mg/dL (8.5-10.5); Carbon Dioxide 23 mmol/L (22-29); Chloride 106 mmol/L (98-107); Globulin 2.3 g/dL (1.3-4.6); Glomerular Filtration Rate 170.1 mL/min (90-130); Glucose 87 mg/dL (65-115); Osmolality Calculated 280 mOsm/kg (285-295); Potassium 4.4 mmol/L (3.5-5.1); Sodium 136 mmol/L (136-145); Thyroid Stimulating Hormone 4.83 uIU/mL (0.27-4.20); Total Bilirubin 0.9 mg/dL (0.15-1.2); Total Protein 5.1 g/dL (6.6-8.7)
[2020-11-26 04:03] LABS: Aspartate Amino Transferase 739 U/L (0-40)
[2020-11-26 04:12] LABS: Slide Review Slide Review Perform
[2020-11-26] MEDS: vancomycin 1,250 MG/250 ML PIGGYBACK 250 MG IV (04:42)
[2020-11-26] MEDS: sodium chlor 0.9% + KCl 20 mEq 20 MEQ/1,000 ML BAG 125 MEQ IV ×2 (06:20→15:45)
[2020-11-26] MEDS: pantoprazole DR 40 mg Tablet PO (09:16)
[2020-11-26] MEDS: doxycycline 100 mg Tablet PO ×2 (09:16→18:13)
[2020-11-26] MEDS: cefTRIAXone 2,000 MG in sodium chloride 0.9% (plus) 50 ML 100 MG IV ×2 (09:16→21:50)
--- NOTE | 2020-11-26 09:28 | P.PN_ITS ---
Subjective Subjective: Interval history: Denies pain. Had a loose not watery stool this morning. Minimal abdominal discomfort. Denies vomiting. Appetite is poor. Vitals/I&O/Wt Last Vital Signs Temp 98.4 F 11/26/20 04:00 Pulse 68 11/26/20 06:00 Resp 22 H 11/26/20 06:00 BP 111/65 11/26/20 06:00 Pulse Ox 95 11/26/20 06:00 11/25/20 11/26/20 11/26/20 22:59 06:59 14:59 Intake Total 1550 / 3210 1191.407 / 4401.407 Output Total 1650 / 5000 1150 / 6150 Balance -100 / -1790 41.407 / -1748.593 Weight last 48 hrs Weight 80.021 kg Weight 79.107 kg Physical Exam Const: COMMON NORMALS: no acute distress and patient oriented x3 HENMT: COMMON NORMALS: oropharynx normal Eye: OTHER: mild R conjunctival injection, no discharge Neck/C-Spine: COMMON NORMALS: no JVD Resp: COMMON NORMALS: normal respiratory effort and clear to auscultation bilaterally AUSCULTATION: clear to auscultation bilaterally Cardio: COMMON NORMALS: no JVD, regular rhythm, S1 normal heart sound present, S2 normal heart sound present and No murmurs present (Cardio) RHYTHM: regular rhythm HEART SOUNDS: S1 normal heart sound present and S2 normal heart sound present GI: COMMON NORMALS: Normal to inspection, nondistended, normoactive bowel sounds present, Soft to palpation and non-tender PALPATION: Yes Soft to palpation Extremity: COMMON NORMALS: no joint enlargement and no pedal edema Neuro: COMMON NORMALS: patient oriented x3 and moves all extremities Skin: COMMON NORMALS: no rashes or lesions noted GENERAL SKIN EXAM: no rashes or lesions noted Urinary Catheter Management^: Grijalva: Cath Placed During This Visit: yes, but has since been removed by the nurse Reason for Continuing Indwelling Catheter: Decision to DC Catheter Urinary Catheter Date of Insertion: 11/23/20 Urinary Catheter Time of Insertion: 22:15 Date Urinary Catheter Removed: 11/25/20 Time Urinary Catheter Discontinued: 11:29 Data : 11/26/20 03:07 11/26/20 03:07 Micro: Microbiology 11/23/20 16:53 Group A Streptococcus Rapid Screen - Final Throat 11/23/20 22:30 Urine Culture - Final Urine Catheterized 11/26/20 03:00 Blood Culture - Preliminary Blood SPECIMEN COLLECTED 11/26/20 03:07 Blood Culture - Preliminary Blood SPECIMEN COLLECTED 11/25/20 11:10 C.difficile Toxin B Gene (PCR) - Final Stool Routine Collection 11/24/20 07:17 Blood Culture - Preliminary Blood NEGATIVE TO DATE 11/24/20 07:23 Blood Culture - Preliminary Blood NEGATIVE TO DATE A&P Assessment and plan (1) Septic shock: Septic shock so far appears to be resolved. He weaned off pressors late last night, this morning not on pressor. Monitor blood pressure. Appears to have persistent DIC, fibrinogen 141, D-dimer 4.48. INR 1.29, APTT 37.3. Reports loose stool. Noted injection right sclera. Follow-up pending studies including stool studies bacterial/parasite panel. C. difficile is negative. Follow-up tick panel. Follow-up Leptospira. Added Francisella serology. He is on doxycycline, although illness may be considered severe given complications, consideration may be given to gentamicin. Discussed with him additional considerations with regards to as opposed to DIC possibility of TTP, possibility of HLH. Appreciate hematology input. Pe ripheral smear ordered. Requested ferritin. Triglycerides. Noted splenomegaly on CT. Negative Covid PCR influenza Ag negative, blood cx thus far without growth, UA with 2+ blood, negative leuk esterase, 2+ bacteria, urine culture with no growth thus far cannot obtain LP though meningitis on differential as plt count at [address] CAP without gross source identifiable, note made of mild hydronephrois likely 2/2 distended bladder, no obstruction identified, since today with persisting fever will rescan with renal ultrasound to evaluate for any change in hydronephrosis Negative monoscreen Pending leptospira ag, enteric PCR panel, bacterial Ag panel , C. difficile PCR negative Continue ceftriaxone 2g iv q12h, vancomycin, doxycycline 100mg q12h continue IVF NS @ 100c/hr encourage p.o. intake No Lymphadenopathy on exam or CT, less concerning for lymphoma Normal differential on CBC makes hematological malignancy less likely, no blast forms noted HIV, hepatitis, STD screen negative Status: Acute (2) Pancytopenia: May be related to sepsis , hemolysis , DIC Bicytopenia. Moderate neutropenia. Reverse isolation. As above. Appreciate hematology expertise regarding additional possible causes. Status: Acute (3) Transaminitis: Likely related to sepsis versus tick borne illness Liver normal on CT Worsening of transaminitis today, 739 AST, 418 ALT. Discussed with him. Medications reviewed. Fevers overall appears to be subsiding. Suspect may be related to possible tickborne illness. Possibly hepatocellular injury secondary to hypotension/septic shock. He has been under 2 g with regards to acetaminophen. Blood pressures have improved. Monitor BP. Recheck the liver parameters. Status: Acute (4) Hypokalemia: Now repleted Status: Acute (5) Hyponatremia: Resolved. As a result of dehydration. Status: Acute (6) DIC (disseminated intravascular coagulation): As a result of severe sepsis, treating the underlying cause as above. At this time no blood product needed. Recheck DIC panel. Monitor cell counts. So far does not appear to have issues with bleeding. PLT increasing. Will add VTE prophylactic dose of heparin. Status: Acute Additional A&P Information DVT ppx: Low dose heparin. SCD. Full code Attestations Medical Necessity Statement*: Continue admission for assessment management of sepsis with so far not yet identified source, empiric antibiotic therapy, with bicytopenia, DIC. 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 Diagnoses Septic shock A41.9; R65.21 Pancytopenia D61.818 Transaminitis R74.01 Hypokalemia E87.6 Hyponatremia E87.1 DIC (disseminated intravascular coagulation) D65
[2020-11-26 09:51] LABS: Triglycerides 300 mg/dL (0-150)
[2020-11-26 10:45] LABS: LAB Peripheral Smear Sent for Review
[2020-11-26 11:13] LABS: Ferritin 16608 ng/mL (30-400)
[2020-11-26] MEDS: heparin 5,000 unit/mL INJ 1 mL 5000 UNIT SUBCUT (12:53)
[2020-11-26] MEDS: vancomycin 1,500 MG/300 ML PIGGYBACK 200 MG IV ×2 (12:54→19:34)
--- NOTE | 2020-11-26 22:47 | P.TS_ITS ---
Transfer Summary Providers Date of Admission: 11/23/20 18:45 Date of Discharge: 11/26/20 Attending Provider at Admission: Sri Avendano MD Attending Provider at Transfer: Ata Young Anticipated Date of Transfer: Anticipated date of transfer: 11/26/20 Receiving Facility & Provider: Receiving Provider: [] Receiving facility: [] Diagnoses at Discharge Discharge Diagnosis (1) Septic shock: Status: Acute (2) Pancytopenia: Status: Acute Permanent problem details: Bicytopenia (3) Transaminitis: Status: Acute (4) Hypokalemia: Status: Acute (5) Hyponatremia: Status: Acute (6) DIC (disseminated intravascular coagulation): Status: Acute (7) Shiga toxin 1 and Shiga toxin 2 detected: Status: Acute (8) Hemolysis: Status: Acute (9) Splenomegaly: Status: Acute Reason for Visit Reason for Visit: h/a high temp and aches Hospital Course Hospital Course Pleasant 20 year old [facility] gentleman without significant past medical history was admitted for assessment and management feeling unwell for about a week, with aches, high temperature. In ER fever noted as high as 106F, with sepsis, with tachycardia, leukopenia, WBC 3.2, thrombocytopenia as low as 36K on presentation. ANC 2000 on presentation. With headache, neck pain. Noted c onjunctival injection. 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 Reported tick bites. 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 Drinks unpasteurized milk. Consumes raw eggs. No raw meat. With noted transaminitis, AST 81, ALT 42, normal AP and tBili. Moderate splenomegaly noted on CTAP. Mild bilateral hydronephrosis and proximal hydroureter without apparent cause for obstruction and no stones. Findings may be related to bladder distention. Nonaggressive sclerotic bone lesion in the right superior acetabulum. This is likely benign. If the patient has a history of malignancy or pain at the site, consider follow-up bone scan. Mild diffusely increased interstitial markings, possibly exaggerated with low lung volumes on CXR. 6 mm right upper lobe pulmonary nodule on CT chest. Unremarkable CT head. LP could not be obtained safely due to thrombocytopenia. Blood cultures were collected. Tick panel sent. COVID PCR was negative. Influenza Ag neg. UA with 0-4RBC, 5-10WBC, 0-4 SEC, 2+ bacteria. Neg nitrate. Neg LE. Blood and urine cultures without growth so far. GAS rapid test negative. Urine bacterial antigens including Legionella neg. HIV, hepatitis panel neg. Chlamydia, gonorrhea neg. RPR neg. Repeat blood culture 11/24 neg to date. Leptospira PCR pending. Francisella serology requested. He has been empirically treated with ceftriaxone, vancomycin, doxycycline for possible meningitis. Possible tick-borne illness. Possible GI infection. Transintly required pressor support, weaned off lat on 11/25. Noted picture of hemolysis with DIC, with Fibrinogen 142, DDimer 9.2, INR 1.49, prolonged APTT, thrombocytopenia, LDH 844, haptoglobin low at 10. Fever overall improved with treatment, last febrile episode 11/25 1:30AM. Thrombocytopenia with mild improvement to 50k, but worsening ANC to 1530. Pers isent DIC picture, Fibrinogen 141, positive fibrin degrad products (10-40), DDimer 4.48 ug/mIFEU. INR 1.20. PT 16.4. DIC score 5. However, also high Plasmic score. Peripheral smear requested. And with bicytopenia, high fever (up to 106F), hemolysis, ferritin checked today 10181, triglycerides 300, HLH considered as another possibility of his symptoms. Today noted worsening transaminitis, AST up to 739, ALT 418. Renal function remains normal. Kidney US with trace R perinephric fluid, no hydronephrosis, L pleural effusion. Gentamicin added empirically to cover possible severe typhoidal tularemia. Loose stools today returning positive for shiga toxin (neg C diff, neg O&P). Thrombocytopenia, hemolysis, again raising concern of TTP. HLH still also remains a possibility. Requested hematology consultation. As per discussion with pt and his family of differential diagnoses, his condition and so far obtained evaluation, with risk of poor outcomes/complications, lack of availability of plasma exchanges, transfer recommended to higher level facility. No beds available at [facility] or [facility]. No beds currently open at [facility] or [facility], but accepted and waitlisted at both facilities after discussion with triage physicians at ICU there. Discussed with patient, and discussions conducted with parents in person as well as via friend Mr Mae who lives next door to their farm and able to communicate with the parents (phone number on face sheet). Physical Exam Const: COMMON NORMALS: no acute distress and patient oriented x3 HENMT: COMMON NORMALS: oropharynx normal Eye: OTHER: mild R conjunctival injection, no discharge Neck/C-Spine: COMMON NORMALS: no JVD Resp: COMMON NORMALS: normal respiratory effort and clear to auscultation bilaterally AUSCULTATION: clear to auscultation bilaterally Cardio: COMMON NORMALS: no JVD, regular rhythm, S1 normal heart sound present, S2 normal heart sound present and No murmurs present (Cardio) RHYTHM: regular rhythm HEART SOUNDS: S1 normal heart sound present and S2 normal heart sound present GI: COMMON NORMALS: Normal to inspection, nondistended, normoactive bowel sounds present, Soft to palpation and non-tender PALPATION: Yes Soft to palpation Extremity: COMMON NORMALS: no joint enlargement and no pedal edema Neuro: COMMON NORMALS: patient oriented x3 and moves all extremities Skin: COMMON NORMALS: no rashes or lesions noted GENERAL SKIN EXAM: no rashes or lesions noted Urinary Catheter Management^: Grijalva: Cath Placed During This Visit: yes, but has since been removed by the nurse Reason for Continuing Indwelling Catheter: Decision to DC Catheter Urinary Catheter Date of Insertion: 11/23/20 Urinary Catheter Time of Insertion: 22:15 Date Urinary Catheter Removed: 11/25/20 Time Urinary Catheter Discontinued: 11:29 TS Data Data Completed and Pending: Completed Studies During Hospitalization Category Date Time Status CT chest abd pel wo con Urgent Cat Scan 11/23/20 16:[address] head wo con* 7 0450 Urgent Cat Scan 11/23/20 15:05 Completed XR chest 1V toma ble [id number] Urgent Exams 11/23/20 15:05 Completed US renal BI* 7677 0 Routine Ultrasound 11/25/20 09:53 Completed Pending at discharge Category Date Time Status ABO/Rh Type Routi ne Lab 11/26/20 10:40 Results Blood Culture AM LABS Lab 11/24/20 07:17 Results Blood Culture AM LABS Lab 11/26/20 03:00 Results Blood Culture Sta t Lab 11/23/20 15:26 Results Complete Blood Co unt w/Auto AM LABS Lab 11/27/20 04:00 Ordered Complete Blood Co unt w/Auto AM LABS Lab 11/28/20 04:00 Ordered Complete Blood Co unt w/Auto AM LABS Lab 11/29/20 04:00 Ordered Complete Crossmat ch Routine Lab 11/26/20 10:40 Results Comprehensive Met abolic Panel AM [place] BS Lab 11/27/20 04:00 Ordered Comprehensive Met abolic Panel AM [place] BS Lab 11/28/20 04:00 Ordered Comprehensive Met abolic Panel AM [facility] Lab 11/29/20 04:00 Ordered DIC Profile AM [facility] Lab 11/27/20 04:00 Ordered Francisella Tular ensis DA Routine Lab 11/26/20 03:00 Received Frozen Plasma FZ <24 1st Cont Routi ne Lab 11/26/20 10:40 Results Haptoglobin AM [place] BS Lab 11/27/20 04:00 Ordered Lactate Dehydroge nase AM LABS Lab 11/27/20 04:00 Ordered Leptospira DNA,Qu alitative PCR Rout ine Lab 11/23/20 19:38 Received Tick Panel Routin e Lab 11/23/20 19:38 Received Vancomycin Trough Timed Lab 11/27/20 11:00 Ordered Labs from last 24 hours 11/26/20 11/26/20 11/26/20 10:40 05:07 03:07 WBC RBC Hgb Hct MCV MCH MCHC RDW Plt Count MPV Neut % (Auto) Lymph % (Auto) Page % (Auto) Eos % (Auto) Baso % (Auto) Neut # (Auto) Lymph # (Auto) Page # (Auto) Eos # (Auto) Baso # (Auto) Nucleated RBC % (a uto) Nucleated RBCs # PT 16.40 H INR 1.29 H APTT 37.3 H Fibrinogen 141 L Fibrin Degrad Prod ucts Pos, 10-40 H D-Dimer 4.48 H Sodium Potassium Chloride Carbon Dioxide Anion Gap BUN Creatinine GFR Calculation Glucose Calculated Osmolal ity Calcium Ferritin 64690 H Total Bilirubin AST ALT Alkaline Phosphata se Total Protein Albumin Globulin Triglycerides 300 H TSH Vancomycin Trough F. tularensis Ab Blood Type A Positive Rho(D) Type Positive / 4+ 11/26/20 11/26/20 11/26/20 03:07 03:07 03:00 WBC 3.8 L RBC 4.09 L Hgb 12.3 Hct 35.6 L MCV 87.0 MCH 30.1 MCHC 34.6 RDW 12.4 Plt Count 50 L MPV 13.3 H Neut % (Auto) 40.7 Lymph % (Auto) 49.5 Page % (Auto) 7.2 Eos % (Auto) 0.8 Baso % (Auto) 1.3 Neut # (Auto) 1.53 L Lymph # (Auto) 1.9 Page # (Auto) 0.3 Eos # (Auto) 0.0 Baso # (Auto) 0.1 Nucleated RBC % (a uto) 0 Nucleated RBCs # 0.0 PT INR APTT Fibrinogen Fibrin Degrad Prod ucts D-Dimer Sodium 136 Potassium 4.4 Chloride 106 Carbon Dioxide 23 Anion Gap 11.4 BUN 10 Creatinine 0.6 L GFR Calculation 170.1 H Glucose 87 Calculated Osmolal ity 280 L Calcium 7.3 L Ferritin Total Bilirubin 0.9 AST 739 H ALT 418 H Alkaline Phosphata se 77 Total Protein 5.1 L Albumin 2.8 L Globulin 2.3 Triglycerides TSH 4.83 H Vancomycin Trough F. tularensis Ab Pending Blood Type Rho(D) Type 11/26/20 03:00 WBC RBC Hgb Hct MCV MCH MCHC RDW Plt Count MPV Neut % (Auto) Lymph % (Auto) Page % (Auto) Eos % (Auto) Baso % (Auto) Neut # (Auto) Lymph # (Auto) Page # (Auto) Eos # (Auto) Baso # (Auto) Nucleated RBC % (a uto) Nucleated RBCs # PT INR APTT Fibrinogen Fibrin Degrad Prod ucts D-Dimer Sodium Potassium Chloride Carbon Dioxide Anion Gap BUN Creatinine GFR Calculation Glucose Calculated Osmolal ity Calcium Ferritin Total Bilirubin AST ALT Alkaline Phosphata se Total Protein Albumin Globulin Triglycerides TSH Vancomycin Trough 9.0 L F. tularensis Ab Blood Type Rho(D) Type Vitals: Last Vital Signs Temp 98.4 F 11/26/20 08:00 Pulse 60 11/26/20 22:00 Resp 23 H 11/26/20 22:00 BP 98/60 11/26/20 22:00 Pulse Ox 97 11/26/20 22:00 TS Medications Medications Home Medications No Known Home Medications 11/23/20 [History Confirmed 11/23/20] Active Medications Acetaminophen (Acetaminophen 325 Mg Tablet) 650 mg PO Q6H PRN PRN Reason: Mild/Mod Pain Or Temp >/= 101 Last Admin: 11/25/20 19:32 Dose: 650 mg Documented by: Doxycycline Monohydrate (Doxycycline 100 Mg Tablet) 100 mg PO BID TWYLA; Protocol Last Admin: 11/26/20 18:13 Dose: 100 mg Documented by: Heparin Sodium (Beef Lung) (Heparin 5,000 Unit/Ml Inj 1 Ml) 5,000 unit SUBCUT Q12H [facility] Last Admin: 11/26/20 12:53 Dose: 5,000 unit Documented by: Ceftriaxone Sodium 2,000 mg/ (Sodium Chloride) 50 mls @ 100 mls/hr IV Q12H [facility]; Protocol Last Infusion: 11/26/20 22:20 Dose: Infused Documented by: Norepinephrine Bitartrate 4 mg (/ Dextrose) 254 mls @ 0 mls/hr IV .Q0M [facility]; Protocol Last Titration: 11/26/20 00:32 Dose: 0 mcg/min, 0 mls/hr Documented by: Potassium Chloride/Sodium Chloride (Sodium Chlor 0.9% + Kcl 20 Meq) 20 meq in 1,000 mls @ 125 mls/hr IV .Q8H [facility] Last Admin: 11/26/20 15:45 Dose: 125 mls/hr Documented by: Vancomycin/PEG/NADA/Lysine/Water (Vancocin) 1,500 mg in 300 mls @ 200 mls/hr IV Q8H [facility] Last Infusion: 11/26/20 21:04 Dose: Infused Documented by: Gentamicin Sulfate 200 mg/ (Sodium Chloride) 55 mls @ 105 mls/hr IV Q12H [facility] Last Infusion: 11/26/20 18:18 Dose: Infused Documented by: Ondansetron HCl (Ondansetron 2 Mg/Ml Sdv 2 Ml) 4 mg IVP Q6H PRN PRN Reason: NAUSEA AND VOMITING Pantoprazole Sodium (Pantoprazole Dr 40 Mg Tablet) 40 mg PO DAILY [facility] Last Admin: 11/26/20 09:16 Dose: 40 mg Documented by: Discharge Plan Discharge Patient Disposition: Xfer Short-Term Hosp Condition: Stable Prescriptions: No Action No Known Home Medications RF: 0 Transfer Attestations Time Spent in Transfer Care*: greater than 30 min Quality Metrics Clinical Quality Measures: During this hospital stay, did patient experience: None Coding Level of Care Code Acute Shirt Folder for Romyg Fwd Diagnoses Septic shock A41.9; R65.21 Pancytopenia D61.818 Transaminitis R74.01 Hypokalemia E87.6 Hyponatremia E87.1 DIC (disseminated intravascular coagulation) D65 Shiga toxin 1 and Shiga toxin 2 detected B96.23 Hemolysis Splenomegaly R16.1
[2020-11-27] VITALS: BP 102/52; PULSE 60; RESP 24; TEMP 36.5; O2SAT 97
[2020-11-27] MEDS: heparin 5,000 unit/mL INJ 1 mL 5000 UNIT SUBCUT (00:22)
[2020-11-27] MEDS: sodium chlor 0.9% + KCl 20 mEq 20 MEQ/1,000 ML BAG 125 MEQ IV (00:22)
--- NOTE | 2020-11-27 00:46 | PC.NURSE ---
Transfer [facility] arrived at this time to transport patient to [facility]. Pt assigned to room 8424 bed A in ICU by Serafin Jones, bed coordinator. Accepting physician Dr. Jacobs. Family called and given information and phone numbers.
[2020-11-27 00:51] VITALS: BP 102/55; PULSE 71; RESP 26; TEMP 36.5; O2SAT 96
[2020-11-29 09:21] LABS: Lyme AB Screen <0.90 index
[2020-11-29 09:22] LABS: Leptospira DNA QL NOT DETECTED; Leptospira Source BLOOD; RMSF IGG NOT DETECTED; RMSF IGM NOT DETECTED
[2020-11-29 21:22] LABS: E. Chaffeensis AB IGM 1:20
[2020-12-05 17:32] LABS: Francisella Tularensis DA <1:20 titer
== END 2020-11-27 00:53 | disposition short-term general hospital (02) | DRG 871 ==
LOC: ER 18:43 → ICU 20:04
PROVIDERS: Admitting Provider Student in an Organized Health Care Education/Training Program; Emergency Provider Family Medicine; Visit Provider Internal Medicine
DX: A41.9 Sepsis, unspecified organism (principal); R65.21 Severe sepsis with septic shock; D65 Disseminated intravascular coagulation [defibrination syndrome]; M31.1 Thrombotic microangiopathy; A03.0 Shigellosis due to Shigella dysenteriae; D61.818 Other pancytopenia; N13.30 Unspecified hydronephrosis; E87.1 Hypo-osmolality and hyponatremia; E87.6 Hypokalemia; D70.9 Neutropenia, unspecified; R16.1 Splenomegaly, not elsewhere classified; M89.9 Disorder of bone, unspecified
CPT/HCPCS: 36415; 51702; 70450; 71045; 71250; 74176; 76770; 80053; 80202; 80500; 81001; 82330; 82533; 82607; 82728; 82746; 83010; 83605; 83615; 83690; 84145; 84443; 84478; 85025; 85362; 85378; 85384; 85610; 85730; 86000; 86308; 86403; 86592; 86618; 86666; 86705; 86706; 86709; 86757; 86803; 86900; 87040; 87081; 87086; 87340; 87426; 87449; 87491; 87493; 87506; 87591; 87635; 87798; 87804; 87806; 87880; 93005; 96365; 96366; 96367; 96368; 96372; 96375; 99291; J0610; J0696; J1580; J1644; J1885; J2405; J2543; J3370; J3480; J7030; J7050